=== PATIENT | female | born 1940 | race Caucasian/White ===

== ENCOUNTER 2023-10-09 20:11 | Emergency (ER) | payer MEDICARE ==
[2023-10-09] MEDS: Lidocaine/Epineph/Tetracaine 3 ML Syringe TOP ONE (20:46)
[2023-10-09] MEDS: Acetaminophen 325 MG Tab PO ONE (23:24)
[2023-10-09] MEDS: Ondansetron 4 MG Tab.DIS PO PRN (23:24)
[2023-10-09] MEDS: Ondansetron 4 MG/2 ML SDV IVPUSH ONE (23:25)
[2023-10-10] MEDS: Ibuprofen 600 MG Tab PO ONE (01:10)
== END 2023-10-10 01:35 | disposition home or self-care (01) ==
LOC: JP.ED 20:11
DX: S02.85XA Fracture of orbit, unspecified, initial encounter for closed fracture (principal); S09.90XA Unspecified injury of head, initial encounter; Z79.899 Other long term (current) drug therapy; Z91.09 Other allergy status, other than to drugs and biological substances; W22.8XXA Striking against or struck by other objects, initial encounter
CPT/HCPCS: 12013; 70450; 72125; 76377; 99283; A9270; Q0162